=== PATIENT | female | born 1955 | race Caucasian/White ===

== ENCOUNTER 2021-07-24 15:46 | Emergency (ER) | payer MEDICARE, SELFPAY ==
[2021-07-24 15:47] VITALS: BP 178/98; PULSE 84; RESP 16; TEMP 36.4; O2SAT 94; BMI 24.0
--- NOTE | 2021-07-24 15:50 | EKG12_ITS ---
Test Reason : CP Blood Pressure : / mmHG Vent. Rate : 081 BPM Atrial Rate : 081 BPM P-R Int : 150 ms QRS Dur : 068 ms QT Int : 376 ms P-R-T Axes : 078 066 074 degrees QTc Int : 436 ms Normal sinus rhythm Normal ECG Confirmed by VICTORINA HARRIS, TRINY ([id number]), supervising film or videotape editor MARIANGEL BARTON ([id number]) on 07/25/2021 11:28:02 AM Referred By: CHARLES Confirmed By:TRINY PRAJAPATI MD
--- NOTE | 2021-07-24 16:00 | RAD_ITS ---
STUDY: X-RAY CHEST REASON FOR EXAM: Female, 65 years old. chest pain TECHNIQUE: Single AP portable view of the chest. COMPARISON: None. FINDINGS: Left-sided small bore thoracostomy tube with a small apical pneumothorax and extensive subcutaneous emphysema. The lungs are clear and expanded. There is no demonstrated pleural abnormality. Normal size heart. Normal mediastinum and funmilayo. Normal visualized pulmonary arteries. Normal visualized aortic arch and descending thoracic aorta. Normal visualized thoracic spine. Normal visualized ribs, clavicles, and shoulders. There is no demonstrated abnormality of the visualized soft tissue structures of the upper abdomen. RAD/Chest 1 View (Portable) IMPRESSION: Left-sided small bore thoracostomy tube with a small apical pneumothorax. Electronically Signed: Júnior Floyd MD at 16:10 EST Tel , Service support ,
--- NOTE | 2021-07-24 16:26 | NURSING ---
NO OLD EKGS
[2021-07-24 16:30] VITALS: BP 154/87; PULSE 80; RESP 18; O2SAT 92; O2SAT 93
[2021-07-24 16:38] LABS: Absolute Lymphocyte Count 0.98 X10^3/uL (0.83-4.51); Absolute Neutrophil Count 4.5 X10^3/uL (2.0-7.7); Basophil# 0.03 X10^3/uL; Basophil% 0.5 % (0-1); Hematocrit 40.7 % (37-47); Hemoglobin 13.4 g/dL (12.0-15.0); Lymphocyte # 0.98 X10^3/ul (0.83-4.51); Lymphocyte % 17.1 % (19-41); Mean Corp Hgb Conc 32.9 g/dL (32-36); Mean Corpuscular Hgb 31.3 pg (27.0-32.0); Mean Corpuscular Volume 95.1 fL (81-99); Mean Platelet Vol. 11.1 fl (6.2-12.0); Monocyte% 1.7 % (0-10); NRBC Flagged by Analyzer 0 % (0-5); Neutrophil # 4.54 X10^3/uL (2.7-7.7); Neutrophil % 79.5 % (47-70); Platelet Count 175 K/mm3 (150-450); RBC Distribution Width CV 13.4 % (11.6-14.6); Red Blood Count 4.28 M/mm3 (4.2-5.4); White Blood Count 5.7 K/mm3 (4.4-11.0)
--- NOTE | 2021-07-24 16:46 | EDS_ITS ---
HPI History of Present Illness Chief Complaint: Chest Pain Informant: patient Narrative Narrative: Patient is a 65-year-old female with history of COPD and a persistent pneumothorax with persistent leak presenting with increased left-sided chest pain. Patient had a bronchoscopy and a placement of [place] valves on June 23. This was done at [facility] with Dr. Gerard. It was complicated by a pneumothorax and patient had catheter placed at that time. She states her lung is never fully reinflated. She had a repeat bronchoscopy this morning at [facility] and had one of her [place] valves removed. She states in the PACU they kept doing chest x-rays and felt that her lung was stable. She was discharged home. When she got home she had sudden onset of left sided chest pain and the front that radiates to her left shoulder blade. She states she is never had pain this bad before. She notes she is on 5 mg oxycodone at baseline to deal with this pain. She notes that she often gets short of breath and desaturates with exertion and that is baseline for her. She notes at rest her O2 saturation is 95%. She does not wear home oxygen. No other complaints at this time. PFS PFS Allergy/AdvReac Type Severity Reaction Status Date / Time amoxicillin Allergy Vomiting Verified 07/24/21 16:39 Social History Smoking Status: Former smoker ROS ROS ED Constitutional Constitutional ED: Denies chills or fever(s) Eyes Eyes: Denies change in vision ENT ENT ED: Denies ear pain or sore throat Cardiovascular Cardiovascular: Reports chest pain Respiratory/Chest Respiratory/Chest: Denies cough or dyspnea Gastrointestinal Gastrointestinal: Denies abdominal pain or vomiting Musculoskeletal Musculoskeletal: Denies arthralgias or myalgias Integumentary Denies rash Neurologic Neurologic: Denies headache(s) or weakness Psychiatric Psychiatric: Denies anxiety or depression EXAM Physical Exam Const Vital Signs: 07/24/21 15:47 07/24/21 16:30 07/24/21 17:00 Temperature 97.5 F L Temperature Source Temporal Pulse Rate 84 80 81 Respiratory Rate 16 18 19 H Blood Pressure 178/98 H 154/87 H 147/90 H Blood Pressure Mean 124 109 109 Pulse Ox 94 93 94 Oxygen Delivery Method Room Air Room Air Room Air Positive well nourished and well developed General Appearance ED: well developed HEENT normocephalic and atraumatic Eyes PERRL and EOMs intact bilaterally Neck no lymphadenopathy and supple Chest Wall Chest Narrative: Patient has some mild chest wall crepitus on palpation. She states this has been there since June 23. There is Pleurx catheter in the left anterior chest wall. No reproducible chest wall tenderness on palpation. Resp normal respiratory effort Auscultation: diminished lung sounds left GI normal to inspection, nondistended, normoactive bowel sounds and soft to palpation Back/Spine no CVA tenderness Neuro oriented x3 Sensorium / Orientation: awake and alert Motor Exam: Negative for general weakness Psych mental status grossly normal Skin no rashes or lesions noted and no wounds Heart Score History: Slightly/Non-Suspicious ECG: Normal Age: >/= 65 years Risk Factors: 1 or 2 Risk Factors Troponin: </= Normal Limit Score: 3 MDM MDM MDM Narrative Medical decision making narrative: Patient evaluated for left-sided chest pain. It occurred after bronchoscopy today. I suspect it is more pleuritic in nature and associated with her chronic pneumothorax and not cardiac.-She troponin is indeterminately elevated at 67. Repeat is still 67. She does not have any acute EKG changes. She is given aspirin however I do not suspect ACS or cardiac ischemia as a cause of her pain. I did speak with her cardiothoracic surgeon at [facility]. He feels that patient just requires reassurance for her pain and as her x-ray does not show any acute abnormality he is comfortable with her discharge home. He is already called and pain medicine for her. Patient is given fentanyl and then Dilaudid for her pain in the ER. She arcenio l take her oxycodone she has at home. She is placed on low intermittent suction while in the ER for short time but did not tolerate this well. Patient is counseled on return precautions. She will watch her pulse oximetry at home as well. Lab Data Labs: Laboratory Results - last 24 hr 07/24/21 07/24/21 07/24/21 16:30 16:30 18:25 WBC 5.7 RBC 4.28 Hgb 13.4 Hct 40.7 MCV 95.1 MCH 31.3 MCHC 32.9 RDW Std Deviation 47.0 H RDW Coeff of Evelyne 13.4 Plt Count 175 MPV 11.1 Immature Gran % (Auto) 1.200 H Neut % (Auto) 79.5 H Lymph % (Auto) 17.1 L [place] % (Auto) 1.7 Eos % (Auto) 0.0 Baso % (Auto) 0.5 Absolute Neuts (auto) 4.5 Absolute Lymphs (auto) 0.98 Nucleated RBC % 0 Sodium 137 Potassium 4.2 Chloride 102 Carbon Dioxide 27.0 Anion Gap 8 BUN 19 H Creatinine 1.22 H Estim Creat Clear Calc 44.18 Est GFR (MDRD) Af Amer 57 L Est GFR (MDRD) Non-Af 47 L BUN/Creatinine Ratio 15.6 Glucose 149 H Calcium 9.0 Troponin I High Sens 67 H 67 H Radiography Chest X-Ray - ED: 1 View, Read by ED Physician, Read by Radiologist and - (Small left apical pneumothorax with small bore thoracostomy tube in place) Diagnostic Testing: Clinical Impression(s) from Imaging Studies Chest X-Ray 07/24/21 16:00 IMPRESSION: Left-sided small bore thoracostomy tube with a small apical pneumothorax. Electronically Signed: Júnior Floyd MD at 16:10 EST Tel , Service support , Rhythm Strip Rhythm Strip: Sinus Rhythm Rate: 81 Ectopy: None EKG Initial EKG: Attestation: I personally reviewed and interpreted this EKG as follows: Interpretation: Sinus Rhythm Comments: Normal sinus rhythm at a rate of 81 Normal axis Normal intervals Normal ST segments Prior: No Prior Discharge Plan Triage Chief Complaint: Chest Pain ED Provider: Chastity Fregoso Dx/Rx/DC Orders Clinical Impression: Chronic pneumothorax, Left-sided chest pain Instructions: Pneumothorax (Collapsed Lung), ED Pleurisy Referrals: FELICITAS ROMANO [Other] Activity Restrictions/Additional Instructions: Please follow-up with your primary care doctor for further cardiac testing at this time I do think you are safe to go home. Continue to follow-up with your lung doctor as well. Disposition Disposition: Home, Self Care
--- NOTE | 2021-07-24 16:50 | NURSING ---
TO HIS OFFICE THEY WILL HAVE HIM CALL DR HERCULES
[2021-07-24] MEDS: fentaNYL 100 MCG/2 ML Ampul 50 MCG IV (16:51)
[2021-07-24 16:55] LABS: Anion Gap 8 (5-15); BUN 19 mg/dL (7-18); BUN/Creat Ratio 15.6 RATIO (10-20); Chloride 102 mmol/L (98-107); Creatinine, Serum 1.22 mg/dL (0.55-1.02); EST Glomerular Filtration Rate 47 mL/min (>60); Est Glom Filt Rate - Afr Amer 57 mL/min (>60); Estimated Creatinine Clearance 44.18 ml/min; Glucose 149 mg/dL (74-106); Potassium 4.2 mmol/L (3.5-5.1); Sodium Level 137 mmol/L (136-145); Troponin-I HS 67 pg/mL (3.0-54.0)
[2021-07-24 17:00] VITALS: BP 147/90; PULSE 81; RESP 19; O2SAT 94
[2021-07-24 18:55] LABS: Troponin-I HS 67 pg/mL (3.0-54.0)
[2021-07-24] MEDS: Aspirin 325 MG Tablet PO (18:55)
[2021-07-24] MEDS: HYDROmorphone 0.5 MG/0.5 ML SYRINGE IV (19:14)
[2021-07-24 19:38] VITALS: BP 153/81; PULSE 88; RESP 16; O2SAT 94
== END 2021-07-24 19:41 | disposition home or self-care (01) ==
PROVIDERS: Emergency Provider Emergency Medicine; Visit Provider Emergency Medicine
DX: J93.81 Chronic pneumothorax (principal); R07.9 Chest pain, unspecified; Z87.891 Personal history of nicotine dependence
CPT/HCPCS: 71045; 80048; 84484; 85025; 93005; 96374; 96375; 99285; J7030